=== PATIENT | female | born 1965 | race Caucasian/White ===

== ENCOUNTER 2020-05-13 19:53 | Inpatient (IN) | payer MEDICAID, OTHER ==
[~2020-05-13] VITALS: Ht 170.2 cm; Wt 83.1 kg
[~2020-05-13 19:53] MED LIST: EPINEPHRINE SYRINGE 0.1 MG/ML, 10ML ONE
[2020-05-13] MEDS ORDERED: SODIUM CHLORIDE FLUSH 10ML SYR IVF ONE (20:00)
[2020-05-13] MEDS ORDERED: SODIUM CHLORIDE 0.9% 1,000ML IVBOLUS ONE ×2 (20:00→21:30)
--- NOTE | 2020-05-13 20:17 | NUR ---
DR. LEVIN WAS IN TO EVAL PT. UPON ARRIVAL AND HAS BEEN AT BS SINCE COMING IN. RESP DISTRESS NOTED. CODE CARDIAC CALLED AT 2001.
--- NOTE | 2020-05-13 20:21 | NUR ---
PER EMS REPORT PT. ALLERGIC TO ASPIRIN; HOLDING PER DR. LEVIN.
[2020-05-13] MEDS ORDERED: ACETAMINOPHEN 325 MG SUPP ONE (20:27)
[2020-05-13] MEDS ORDERED: ACETAMINOPHEN 650 MG SUPP ONE (20:27)
[2020-05-13] MEDS ORDERED: PLEASE ENTER ALLERGIES MC SCH (20:30)
[2020-05-13] MEDS ORDERED: ACETAMINOPHEN 650 MG SUPP PR ONE (20:30)
[2020-05-13] MEDS ORDERED: PLEASE ENTER HEIGHT AND WEIGHT MC SCH (20:30)
[2020-05-13] MEDS ORDERED: CEFTRIAXONE PMX 1GM/50ML 50 ML IVPB ONE (20:30)
[2020-05-13] MEDS ORDERED: ASPIRIN 300 MG SUPP PR ONE (20:30)
[2020-05-13] MEDS ORDERED: MIDAZOLAM 1 MG/ML, 5ML ONE (20:35)
[2020-05-13] MEDS ORDERED: FENTANYL PF 100 MCG/2ML ONE (20:35)
[2020-05-13] MEDS ORDERED: LIDOCAINE 2%, 20ML ONE (20:36)
[2020-05-13] MEDS ORDERED: BIVALIRUDIN 250 MG ONE (20:36)
--- NOTE | 2020-05-13 20:36 | NUR ---
3RD EKG IN PROGRESS.
[2020-05-13 20:44] LABS: PROTHROMBIN TIME 10.6 Seconds (9.6-11.5)
[2020-05-13 20:46] LABS: ALANINE AMINOTRANSFERASE 94 U/L (12-78); ALBUMIN 2.8 g/dL (3.4-5.0); ANION GAP 15 mmol/L (5-15); CALCIUM 8.9 mg/dL (8.5-10.1); CHLORIDE 112 mmol/L (98-107); CREATININE 5.99 mg/dL (0.55-1.02)
--- NOTE | 2020-05-13 20:47 | NUR ---
UNABLE TO OBTAIN 2ND IV DESPITE MULTIPLE ATTEMPTS. PERIPHREAL PULSES WEAK.
[2020-05-13 20:51] LABS: ALKALINE PHOSPHATASE 392 U/L (45-117); BILIRUBIN,TOTAL 2.4 mg/dL (0.2-1.0); TOTAL PROTEIN 8.1 g/dL (6.4-8.2); TROPONIN I 0.043 ng/mL (0.000-0.045)
[2020-05-13 20:52] LABS: MEAN CORPUSCULAR HEMOGLOBIN 30.3 pg (27.0-34.8); MEAN CORPUSCULAR HGB CONC 32.9 g/dL (32.4-35.8); MEAN PLATELET VOLUME 11.1 fL (7.4-10.4); RED BLOOD COUNT 4.68 x10^6/uL (3.82-5.3); RED CELL DISTRIBUTION WIDTH 17.6 % (9.6-15.2)
--- NOTE | 2020-05-13 20:56 | NUR ---
PT. REMAINS IN RESP DISTRESS. ROSALINDA UPDATED DR. LEVIN ON MENTAL STATUS; PT. TO HAVE HEAD CT.
--- NOTE | 2020-05-13 20:56 | NUR ---
LAB WAS CONTACTED FOR BLOOD CULTURES.
[2020-05-13] MEDS ORDERED: ACETAMINOPHEN 325 MG SUPP PR ONE (21:00)
[2020-05-13 21:01] LABS: CREATINE KINASE, TOTAL 1452 U/L (26-192)
--- NOTE | 2020-05-13 21:03 | NUR ---
DR. LEVIN BACK IN TO [facility].
--- NOTE | 2020-05-13 21:05 | NUR ---
UNABLE TO OBTAIN B/P. ATTEMPTED MANUAL B/P. UNABLE TO HEAR ANYTHING.
--- NOTE | 2020-05-13 21:08 | NUR ---
LAB AT FOR BLOOD CULTURES.
[2020-05-13] MEDS ORDERED: CEFTRIAXONE PMX 1GM/50ML 50 ML ONE (21:10)
[2020-05-13] MEDS ORDERED: CEFTRIAXONE PMX 2GM/50ML 50 ML ONE (21:11)
--- NOTE | 2020-05-13 21:13 | NUR ---
DR. LEVIN BACK TO BS. LAB AT FOR BLOOD CULTURES AND TO BE TAKEN TO CT WHEN CULTURES DONE.
[2020-05-13 21:14] LABS: PLATELET COUNT 150 x10^3/uL (130-400)
[2020-05-13 21:15] LABS: MD YES
--- NOTE | 2020-05-13 21:18 | NUR ---
IVF PLACED ON PRESSURE BAG. PER DR. LEVIN 2 GRAMS OF ROCEPHIN TO BE ADMIN VS. JUST ONE. 2G/50ML BAG PULLED; OK PER DR. LEVIN VERBAL ORDER AT BS. 2 SETS OF BLOOD CULTURES COMPLETED. HEADING TO CT NOW.
--- NOTE | 2020-05-13 21:18 | NUR ---
ICE PACKS PLACED TO GROIN AND ARMPITS.
[2020-05-13 21:23] LABS: BAND#(MANUAL) 1.61 x10^3/uL; BANDS%(MANUAL) 23 % (0-7); LYMPH#(MANUAL) 1.05 x10^3/uL (1-3.4); LYMPHS% (MANUAL) 15 % (22-44); METAMYELOCYTES# (MANUAL) 0.21 x10^3/uL (0-0); METAMYELOCYTES% (MANUAL) 3 % (0-1); MONOS#(MANUAL) 0.14 x10^3/uL (0.3-2.7); MONOS% (MANUAL) 2 % (2-9); REACTIVE LYMPHS # (MANUAL) 0.14 x10^3/uL (0-0); REACTIVE LYMPHS % (MANUAL) 2 % (0-0); SEG#(MANUAL) 3.85 x10^3/uL (1.8-6.8); SEGS% (MANUAL) 55 % (42-75)
[2020-05-13 21:26] LABS: ANISOCYTOSIS 1+; PMNS WITH VACUOLES 1+; TOXIC GRAN 1+
[2020-05-13 21:30] LABS: <PLATELET ESTIMATE> ADEQUATE; GIANT PLATELETS 1+
[2020-05-13] MEDS ORDERED: CEFTRIAXONE PMX 1GM/50ML 50 ML IV ONE (21:30)
--- NOTE | 2020-05-13 21:44 | NUR ---
BACK FROM CT. DR. LEVIN IN TO PERFORM LP. F
--- NOTE | 2020-05-13 22:00 | NUR ---
LP COMPLETED. URINE SAMPLE COLLECTED. IVF CONTINUE TO INFUSE VIAPRESSURE BAG. ATTEMPTING MANUAL B/P.
[2020-05-13 22:07] LABS: GLUCOSE, CSF 124 mg/dL (40-80); TOTAL PROTEIN,CSF 67 mg/dL (15-45)
--- NOTE | 2020-05-13 22:07 | NUR ---
DR. LEVIN AWARE OF VS. PLAN FOR CENTAL LINE PLACEMENT.
--- NOTE | 2020-05-13 22:16 | NUR ---
TOTAL URINE OUTPUT SINCE LOPEZ PLACEMENT 150 ML.
[2020-05-13] MEDS ORDERED: LORazepam 2 MG/ML, 1ML ONE (22:31)
--- NOTE | 2020-05-13 22:35 | NUR ---
DURING CENTRAL LINE PLACEMENT CODE BLUE CALLED. PT. INTUBATED AT THIS TIME WITH A 7.5 TUBE. BREATH SOUNDS EQUAL BILAT. EQUAL CHEST RISE/FALL.
[2020-05-13] MEDS ORDERED: ETOMIDATE 20 MG/10 ML IVPush ONE (23:00)
[2020-05-13] MEDS ORDERED: SUCCINYLCHOLINE 20 MG/ML, 10ML IVPush ONE (23:00)
[2020-05-13] MEDS ORDERED: VECURONIUM 10 MG IVPush ONE (23:00)
[2020-05-13] MEDS ORDERED: EPINEPHRINE 1 MG/ML, 1ML IVPush ONE (23:00)
[2020-05-13] MEDS ORDERED: SODIUM BICARB 8.4%, 50ML SYRINGE IVPush ONE (23:00)
[2020-05-13] MEDS ORDERED: EPINEPHRINE 5 MG in SODIUM CHLORIDE 0.9% 245 ML IV PRN (23:00)
[2020-05-13] MEDS ORDERED: LORazepam 2 MG/ML, 1ML IVPush ONE (23:00)
[2020-05-13] MEDS ORDERED: NOREPINEPHRINE 8 MG in SODIUM CHLORIDE 0.9% 242 ML IV PRN (23:00)
[2020-05-13] MEDS ORDERED: SODIUM BICARB 8.4%, 50ML SYRINGE ONE ×2 (23:06→23:19)
[2020-05-13] MEDS ORDERED: NOREPINEPHRINE 1 MG/ML, 4ML ONE (23:06)
[2020-05-13] MEDS ORDERED: SODIUM CHLORIDE 0.9%, 250ML ONE (23:06)
[2020-05-13] MEDS ORDERED: EPINEPHRINE 1 MG/ML, 1ML ONE (23:06)
[2020-05-13] MEDS ORDERED: CODE BLUE RESPONSE XX ONE (23:06)
[2020-05-13] MEDS ORDERED: SODIUM BICARBONATE 1 MEQ/ML, 50ML VIAL IVPush ONE (23:30)
--- NOTE | 2020-05-13 23:44 | NUR ---
SEE CODE SHEETS FOR FURTHER DETAILS OF PT. CODE X 3. AT THIS TIME PT. ON VENTILATOR SETTINGS A/C 30BPM, TV 450, PEEP 5.0, 100%FIO2.
--- NOTE | 2020-05-14 00:03 | NUR ---
DR. CHANDLER AND DR. HORNE TO BS TO EVAL PT. FOR ADMISSION.
--- NOTE | 2020-05-14 00:22 | NUR ---
DR. MELENDREZ TO BS TO SUTURE CENTRAL LINE IN PLACE. GETTING READY TO PLACE ART LINE.
[2020-05-14] MEDS ORDERED: VANCOMYCIN PER PHARMACY MC PRN (00:30)
[2020-05-14] MEDS ORDERED: MIDAZOLAM HCL 50 MG in SODIUM CHLORIDE 0.9% 40 ML IV PRN (00:30)
[2020-05-14] MEDS ORDERED: FENTANYL PF 100 MCG/2ML IVPush PRN (00:30)
[2020-05-14] MEDS ORDERED: PHARMACY MAY ADJ FOR RENAL FX MC PRN (00:30)
[2020-05-14] MEDS ORDERED: MELATONIN 5 MG TABLET PO/NG SCH (00:30)
[2020-05-14] MEDS ORDERED: THIAMINE 100 MG in SODIUM CHLORIDE 0.9% 50 ML IV SCH (00:30)
[2020-05-14] MEDS ORDERED: LIDOCAINE-MPF 1%, 2ML ENDO PRN (00:30)
[2020-05-14] MEDS ORDERED: PHARMACY MAY ADJ FOR RENAL FX MC SCH (00:30)
[2020-05-14] MEDS: SODIUM BICARBONATE 8.4% 150 MEQ in DEXTROSE 5% 1,000 ML IV SCH ×2 (00:50→08:05)
[2020-05-14] MEDS ORDERED: HEPARIN 25,000 UNITS/250ML PMX 250 ML IV PRN (01:00)
[2020-05-14] MEDS ORDERED: HEPARIN 5,000 UNITS/ML, 1ML IV ONE (01:00)
[2020-05-14] MEDS ORDERED: HEPARIN 5,000 UNITS/ML, 1ML IV PRN (01:00)
--- NOTE | 2020-05-14 01:00 | NUR ---
ART LINE IN PLACE. FIRST ATTEMPT TO CALL REPORT TO FLOOR.
[2020-05-14 01:11] LABS: MICROSCOPIC INDICATED
--- NOTE | 2020-05-14 01:11 | NUR ---
REPORT TO [facility].
[2020-05-14 01:15] VITALS: BP 66/44
[2020-05-14 01:20] LABS: AMPHETAMINE SCREEN, URINE Negative (Negative); BARBITURATE SCREEN, URINE Negative (Negative); BENZODIAZEPINE SCREEN, URINE Negative (Negative); CANNABINOID SCREEN, URINE Negative (Negative); COCAINE SCREEN, URINE Negative (Negative); METHADONE SCREEN, URINE Negative (Negative); OPIATE SCREEN, URINE Negative (Negative)
[2020-05-14 01:22] LABS: CREATINE KINASE, TOTAL 1531 U/L (26-192); TROPONIN I 0.141 ng/mL (0.000-0.045)
[2020-05-14] MEDS ORDERED: PHARMACOKINETIC MONITORING MC PRN (01:30)
[2020-05-14] MEDS ORDERED: VANCOMYCIN 1,800 MG in SODIUM CHLORIDE 0.9% 250 ML IV ONE (01:30)
[2020-05-14] MEDS ORDERED: PHARMACOKINETIC CONSULTATION MC ONE (01:30)
--- NOTE | 2020-05-14 01:33 | NUR ---
PT. TRANSFERED TO ICU5.
[2020-05-14] MEDS: NOREPINEPHRINE 32 MG in SODIUM CHLORIDE 0.9% 218 ML IV PRN ×3 (02:01→11:19)
[2020-05-14] MEDS: LEVETIRACETAM 500 MG in SODIUM CHLORIDE 0.9% 100 ML IV SCH ×2 (02:02→11:20)
[2020-05-14] MEDS: DEXAMETHASONE 4 MG/ML, 1ML IVPush SCH ×2 (02:17→09:23)
[2020-05-14 03:07] LABS: CHLORIDE,URINE RANDOM 27 mmol/L; POTASSIUM,URINE RANDOM 31 mmol/L
[2020-05-14 03:10] LABS: SODIUM,URINE RANDOM < 5 mmol/L
[2020-05-14] MEDS: INSULIN LISPRO 100 UNITS/ML, PEN SQ-INSULIN SCH ×2 (03:16→09:26)
[2020-05-14] MEDS: PIPERACILLIN/TAZO/PMX 2.25GM 50 ML IV SCH ×3 (03:16→14:06)
[2020-05-14] MEDS ORDERED: SODIUM BICARBONATE 1 MEQ/ML, 50ML VIAL IVPush ONE (05:00)
[2020-05-14] MEDS: EPINEPHRINE 10 MG in SODIUM CHLORIDE 0.9% 240 ML IV PRN ×4 (05:09→14:26)
[2020-05-14] MEDS ORDERED: ASCORBIC ACID 500 MG TABLET NG SCH (08:00)
[2020-05-14 08:13] LABS: MEAN CORPUSCULAR HEMOGLOBIN 30.3 pg (27.0-34.8); MEAN CORPUSCULAR HGB CONC 32.3 g/dL (32.4-35.8); PLATELET COUNT 88 x10^3/uL (130-400); RED BLOOD COUNT 3.82 x10^6/uL (3.82-5.3); RED CELL DISTRIBUTION WIDTH 17.8 % (9.6-15.2)
[2020-05-14 08:16] LABS: ALANINE AMINOTRANSFERASE 287 U/L (12-78); ALBUMIN 1.9 g/dL (3.4-5.0); ANION GAP 16 mmol/L (5-15); CALCIUM 6.5 mg/dL (8.5-10.1); CHLORIDE 110 mmol/L (98-107); CREATININE 6.69 mg/dL (0.55-1.02)
[2020-05-14 08:21] LABS: ALKALINE PHOSPHATASE 293 U/L (45-117); BILIRUBIN,TOTAL 2.4 mg/dL (0.2-1.0); TOTAL PROTEIN 5.8 g/dL (6.4-8.2)
[2020-05-14] MEDS ORDERED: VASOPRESSIN 20 UNIT in SODIUM CHLORIDE 0.9% 99 ML IV PRN (08:30)
[2020-05-14 08:33] LABS: CREATINE KINASE, TOTAL 4081 U/L (26-192)
[2020-05-14] MEDS ORDERED: PANTOPRAZOLE 40 MG IV IV SCH (09:00)
[2020-05-14] MEDS ORDERED: CHOLECALCIFEROL 5,000u TAB PO/NG SCH (09:00)
[2020-05-14] MEDS ORDERED: ZINC SULFATE 220 MG CAPSULE NG SCH (09:00)
[2020-05-14 09:13] LABS: MD YES; PMNS WITH VACUOLES 2+
[2020-05-14 09:16] LABS: BAND#(MANUAL) 1.14 x10^3/uL; BANDS%(MANUAL) 8 % (0-7); SEGS% (MANUAL) 65 % (42-75)
[2020-05-14 09:17] LABS: LYMPH#(MANUAL) 2.29 x10^3/uL (1-3.4); LYMPHS% (MANUAL) 16 % (22-44); METAMYELOCYTES% (MANUAL) 7 % (0-1); MONOS#(MANUAL) 0.57 x10^3/uL (0.3-2.7); MONOS% (MANUAL) 4 % (2-9)
[2020-05-14 09:19] LABS: <PLATELET ESTIMATE> DECREASED; ANISOCYTOSIS 1+; GIANT PLATELETS 1+
[2020-05-14] MEDS ORDERED: PHARMACY INSTRUCTION MC PRN (13:30)
[2020-05-14] MEDS ORDERED: REMDESIVIR 100 MG in SODIUM CHLORIDE 0.9% 250 ML IVPB ONE (13:30)
[2020-05-14] MEDS ORDERED: ROSU40TA PO (13:40)
[2020-05-14] MEDS ORDERED: POTA10TA5 PO (13:40)
[2020-05-14] MEDS ORDERED: QUET300T PO (13:40)
[2020-05-14] MEDS ORDERED: ERGO500018 PO (13:40)
[2020-05-14] MEDS ORDERED: GABA600T7 PO (13:40)
[2020-05-14] MEDS ORDERED: CLOP75TA PO (13:40)
[2020-05-14] MEDS ORDERED: TOPI200C6 PO (13:40)
[2020-05-14] MEDS ORDERED: CLON-364 PO (13:40)
[2020-05-14] MEDS ORDERED: OXYC-307 PO (13:40)
[2020-05-14] MEDS ORDERED: FLUO40CA2 PO (13:40)
[2020-05-14] MEDS ORDERED: FENO134C PO (13:40)
[2020-05-14] MEDS ORDERED: DULO30CA2 PO (13:40)
[2020-05-14] MEDS ORDERED: BUDE10.22 INH (13:49)
[2020-05-14] MEDS ORDERED: TIOT18CA INH (13:49)
[2020-05-14] MEDS ORDERED: FURO40TA6 PO (13:49)
[2020-05-14] MEDS ORDERED: METO25TA4 PO (13:49)
[2020-05-14] MEDS ORDERED: APIX2.5T PO (13:49)
[2020-05-14] MEDS ORDERED: ZOLP10TA PO (13:49)
[2020-05-14] MEDS ORDERED: RANO10005 PO (13:49)
[2020-05-14] MEDS ORDERED: CODE BLUE RESPONSE XX ONE (14:44)
[2020-05-14] MEDS ORDERED: EPINEPHRINE SYRINGE 0.1 MG/ML, 10ML ONE (14:44)
[2020-05-14] MEDS ORDERED: SODIUM BICARB 8.4%, 50ML SYRINGE ONE (14:44)
[2020-05-16] MEDS ORDERED: REMDESIVIR 50 MG in SODIUM CHLORIDE 0.9% 250 ML IVPB SCH (13:30)
== END 2020-05-14 14:49 | disposition expired | DRG 720 ==
LOC: ED 23:27 → EDIP 23:33 → ICU 05-14 01:23
PROVIDERS: ADMIT Family Medicine; ATTEND Internal Medicine
PROC: 009U3ZX Drainage of Spinal Canal, Percutaneous Approach, Diagnostic (ICD-10-PCS; principal; 2020-05-13)
PROC: 02HV33Z Insertion of Infusion Device into Superior Vena Cava, Percutaneous Approach (ICD-10-PCS; 2020-05-13)
PROC: B548ZZA Ultrasonography of Superior Vena Cava, Guidance (ICD-10-PCS; 2020-05-13)
PROC: 03HY33Z Insertion of Infusion Device into Upper Artery, Percutaneous Approach (ICD-10-PCS; 2020-05-13)
PROC: 5A1935Z Respiratory Ventilation, Less than 24 Consecutive Hours (ICD-10-PCS; 2020-05-13)
PROC: 0BH17EZ Insertion of Endotracheal Airway into Trachea, Via Natural or Artificial Opening (ICD-10-PCS; 2020-05-13)
PROC: 0T9B70Z Drainage of Bladder with Drainage Device, Via Natural or Artificial Opening (ICD-10-PCS; 2020-05-13)
PROC: 5A12012 Performance of Cardiac Output, Single, Manual (ICD-10-PCS; 2020-05-13)
PROC: XW033E5 Introduction of Remdesivir Anti-infective into Peripheral Vein, Percutaneous Approach, New Technology Group 5 (ICD-10-PCS; 2020-05-14)
DX: A41.89 Other specified sepsis (principal); E11.65 Type 2 diabetes mellitus with hyperglycemia; F17.200 Nicotine dependence, unspecified, uncomplicated; G35 Multiple sclerosis; G40.909 Epilepsy, unspecified, not intractable, without status epilepticus; G93.41 Metabolic encephalopathy; I21.4 Non-ST elevation (NSTEMI) myocardial infarction; I46.2 Cardiac arrest due to underlying cardiac condition; I50.9 Heart failure, unspecified; J12.89 Other viral pneumonia; J44.0 Chronic obstructive pulmonary disease with (acute) lower respiratory infection; J96.21 Acute and chronic respiratory failure with hypoxia; K72.90 Hepatic failure, unspecified without coma; M62.82 Rhabdomyolysis; N17.0 Acute kidney failure with tubular necrosis; R65.21 Severe sepsis with septic shock; U07.1 COVID-19; Z86.711 Personal history of pulmonary embolism; Z86.73 Personal history of transient ischemic attack (TIA), and cerebral infarction without residual deficits; Z91.19 Patient's noncompliance with other medical treatment and regimen
CPT/HCPCS: 36415; 36600; 70450; 71045; 76700; 80053; 80074; 80307; 81001; 82436; 82533; 82550; 82570; 82803; 82945; 82962; 83036; 83605; 83615; 83735; 83880; 84133; 84145; 84157; 84300; 84478; 84484; 85025; 85379; 85520; 85610; 87040; 87070; 87077; 87081; 87086; 87186; 87205; 87635; 89051; 93005; 93306; 94002; 94003; J0171; J0583; J0696; J1100; J1644; J1953; J2250; J2543; J3010; J3370; J3411; J7070; C9113; J0330; J1815; J7030; J7050